=== PATIENT | female | born 1970 | race Native Hawaiian/Other Pacific Islander ===

== ENCOUNTER 2021-04-13 15:49 | Emergency (ER) | payer BC, OTHER ==
[~2021-04-13] VITALS: Ht 165.1 cm; Wt 81.6 kg
[2021-04-13 16:07] VITALS: BP 159/93
[2021-04-13] MEDS ORDERED: PRD20T PO (16:19)
--- NOTE | 2021-04-13 16:19 | ED Cough/URI ---
General Chief Complaint: COVID19 Suspect/Confirmed Stated Complaint: COVID+; SOB Nursing Triage Note: Patient reports she has had symptoms of COVID-19 for 3 weeks which are gradually improving, states she believes her asthma is flaring up now. She states her inhaler is . Source: patient Exam Limitations: no limitations History of Present Illness Date Seen by Provider: Apr 13, 2021 Time Seen by Provider: 15:56 Initial Comments 50-year-old female with past medical history of diabetes and asthma coming in due to Covid-like symptoms with cough and some dyspnea. She says she ran out of her inhalers and she feels more like this is her asthma than Covid related. Has had symptoms for 3 weeks and tested +1-week ago. No fevers or any other concerns. Tolerating p.o. without vomiting. Allergies and Home Medications Allergies Coded Allergies: NSAIDS (Non-Steroidal Anti-Inflamma (Verified Allergy, Unknown, 04/13/21) Penicillins (Verified Allergy, Unknown, 04/13/21) Patient Home Medication List Home Medication List Reviewed: Yes Prednisone (Prednisone) 20 Mg Tab, 40 MG PO DAILY Prescribed by: LAITH MARES on 04/13/21 7625 Review of Systems Review of Systems Constitutional: No fever EENTM: no symptoms reported Respiratory: cough, short of breath Cardiovascular: No chest pain Gastrointestinal: No abdominal pain, No diarrhea, No nausea, No vomiting Genitourinary: dysuria Musculoskeletal: no symptoms reported Skin: no symptoms reported Psychiatric/Neurological: No Symptoms Reported Hematologic/Lymphatic: No Symptoms Reported All Other Systems Reviewed Negative Unless Noted: Yes Past Ofhfdho-Zvshym-Byblak Hx Patient Social History Tobacco Use?: Yes Tobacco type used: Cigarettes Smoking Status: Former Smoker Substance use?: No Alcohol Use?: Yes Pt feels they are or have been: No Past Medical History Surgery/Hospitalization HX: DM, asthma, thyroid CA Physical Exam Vital Signs - First Documented 04/13/21 16:07 Temp 36.4 Pulse 62 Resp 18 B/P (MAP) 159/93 (115) Pulse Ox 98 O2 Delivery Room Air Capillary Refill : Less Than 3 Seconds Height: '" Weight: lbs. oz. kg; 29.00 BMI Method: General Appearance: WD/WN, no apparent distress HEENT: PERRL/EOMI, normal ENT inspection, pharynx normal Neck: non-tender, full range of motion, supple, normal inspection Respiratory: chest non-tender, lungs clear, normal breath sounds, no respiratory distress, no accessory muscle use Cardiovascular: regular rate, rhythm, no edema, no murmur Gastrointestinal: normal bowel sounds, non tender, soft; No distended, No guarding Extremities: normal range of motion, non-tender, normal inspection, no pedal edema, no calf tenderness, normal capillary refill Neurologic/Psychiatric: no motor/sensory deficits, alert, normal mood/affect Skin: normal color, warm/dry Lymphatic: no adenopathy Progress/Results/Core Measures Suspected Sepsis SIRS Temperature: Pulse: 62 Respiratory Rate: 18 Blood Pressure 159 /93 Mean: 115 Results/Orders My Orders Orders - LAITH MARES MD Albuterol Inhaler (Albuterol) (04/13/21 18:00) Albuterol Inhaler (Albuterol) (04/13/21 16:21) Vital Signs/I&O 04/13/21 04/13/21 16:07 16:13 Temp 36.4 Pulse 62 Resp 18 B/P (MAP) 159/93 (115) Pulse Ox 98 O2 Delivery Room Air Room Air Capillary Refill : Less Than 3 Seconds Blood Pressure Mean: 115 Progress Note : Progress Note 50-year-old female with above history coming in due to cough in the setting of being Covid positive for 1 week with symptoms for 3 weeks. ABCs were intact, vitals were stable, and she appears well. Lungs are clear. She is 98% despite walking around the room on room air. Heart rate is completely normal even with exertion. Have a very low suspicion for significant illness. We will give her an albuterol inhaler since she ran out of it. She says this feels similar to her asthma exacerbations, so we will send steroids for her for that reason. She was then discharged home in stable condition with strict return precautions. Departure Impression Primary Impression: COVID-19 Disposition: 01 HOME, SELF-CARE Condition: Stable Departure-Patient Inst. Decision time for Depature: 16:18 Referrals: NO,LOCAL PHYSICIAN (PCP/Family) Primary Care Physician Patient Instructions: COVID-19 Vaccines, COVID-19 (DC) Add. Discharge Instructions: You are seen in the emergency department for cough and shortness of breath in the setting of having Covid and asthma. Use the inhaler as needed. We will send a prescription for steroids for your asthma to [facility]. I also recommend picking up a pulse oximeter at the pharmacy and if your oxygen is in the 80s for prolonged period of time then come back to the ER. All discharge instructions reviewed with patient and/or family. Voiced understanding. Scripts Albuterol Sulfate (Albuterol Sulfate) 2.5 Mg/3 Ml Vial.neb 2.5 MG INH Q4H PRN for WHEEZING, #50 EA 1 Refill Prov: LAITH MARES MD 04/13/21 Prednisone (Prednisone) 20 Mg Tab 40 MG PO DAILY for 5 Days, #10 TAB 0 Refills Prov: LAITH MARES MD 04/13/21 LAITH MARES MD Apr 13, 2021 16:19
[2021-04-13] MEDS ORDERED: RT-ALBUTEROL HFA 8.5 GM INHALER IH ONE ×2 (16:21→16:30)
[2021-04-13] MEDS ORDERED: ALBU2.5V4 INH (16:31)
[2021-04-13] MEDS ORDERED: RT-ALBUTEROL HFA 8.5 GM INHALER IH SCH (18:00)
== END 2021-04-13 16:23 | disposition home or self-care (01) ==
LOC: ER FS 15:51
DX: U07.1 COVID-19 (principal); E11.9 Type 2 diabetes mellitus without complications; Z87.891 Personal history of nicotine dependence
CPT/HCPCS: 99281